=== PATIENT | male | born 1975 | race Caucasian/White ===

== ENCOUNTER → 2018-04-14 | Outpatient (CLI) | payer OTHER ==
--- NOTE | 2018-04-14 14:41 | CARD ---
MR#: [id number] Date of Study: 04/14/2018 Ordering Physician: MILIND HACKETT, Referring Physician: MILIND HACKETT, Tech: Verónica Sage RDCS APPROVED REPORT INDICATION Chest Pain Reason : Patient complained of pain PROCEDURE The patient underwent an Exercise Stress Test using the Gucci Protocol. Blood pressure, heart rate, a nd EKG were monitored. An Echocardiogram was performed by engine emission technician in four stages in quad fashion. At peak stress four se lected images were obtained and placed side by side with resting images for comparison. STRESS ECHO FINDINGS The resting Echocardiogram showed normal left ventricular systolic contractility with an estimated Ej ection Fraction of about 60 %. The Resting Echocardiogram showed normal augmentation of myocardial wall segments using a 16 segment model. The Stress Echocardiogram showed normal augmentation of myocardial wall segments using a 16 segment m jeffrey. The Stress Echocardiogram left ventricular systolic contractility has an estimated Ejection Fraction of about 65%. Test Type: Exercise Stress Nurse/Tech: Megan Palmer RN Test Indications: Chest Pain Cardiac History and Allergies: No known cardiac Medications: see EMR Medical History: see EMR Resting ECG: SR Resting Heart Rate: 70 bpm Resting Blood Pressure: 124/70mmHg Pretest Chest Pain: No chest pain Nurse/Tech Notes S1,S2 and lungs are clear to auscultation. Stress Symptoms Dyspnea,Fatigue POST EXERCISE Reason for Termination: Fatigue Target HR: No Max HR: 147 bpm 84% of Maximum Predicted HR: 176 bpm Exercise duration: 13:03 min:sec, 5 Stage Exercise capacity: 14.8METs Max Blood Pressure: 148/82mmHg Blood Pressure response to exercise: Normal blood pressure response during stress. Heart Rate response to exercise: WNL Chest Pain: No. Arrhythmia: No. ST Change: No. STRESS ECG Stress EKG shows no significant changes. Preliminary Notification Critical Value: No <Conclusion> No evidence of stress induced EKG changes. Good exercise capacity at 14.8 Mets Normal resting wall motion and EF at 55% Normal stress wall motion and EF at 65%. (images obtained at less than 85% MPHR, decreasing senstivit y of the test) Low risk study overall. Signed by : Keith Katrapati, Electronically Approved : 04/14/2018 14:40:06
== END | disposition home or self-care (01) ==
LOC: ECHO 11:48
PROVIDERS: ATTEND Internal Medicine Cardiovascular Disease
DX: R07.9 Chest pain, unspecified (principal)
CPT/HCPCS: 93017; 93350

== ENCOUNTER → 2020-03-11 | Outpatient (CLI) | payer OTHER ==
--- NOTE | 2020-03-11 14:52 | KCIC ---
EXAMINATION: LOWER EXT JOINT WO LT INDICATIONS: Left knee pain medially since injuring January. TECHNIQUE: Multiplanar multisequence MRI of the left knee was obtained without contrast. COMPARISON: None. FINDINGS: MENISCI: The medial and lateral menisci are intact. LIGAMENTS: The anterior and posterior cruciate ligaments are intact. The medial collateral ligament and lateral collateral ligament complex are intact. EXTENSOR MECHANISM: The quadriceps and patellar tendons are intact. Fat pads are normal. Retinacula are intact. BONES AND CARTILAGE: There is marrow edema in the medial tibial plateau extending into the lateral tibial plateau with suggestion of a low signal fracture line on T2 series (image 9, series 8). This could reflect a bone contusion or stress fracture.. Alignment is normal. Focal superficial and deep partial thickness cartilage loss in the lateral patellar facet with small subchondral cysts. Trochlear cartilage is intact. Medial and lateral compartment cartilage is intact. OTHER: Small joint effusion. No Vidal cyst. Muscles and tendons are normal. There is soft tissue edema along the proximal medial tibia. IMPRESSION: 1. Medial tibial plateau stress fracture. 2. No meniscal or ligamentous injury. 3. Patellofemoral cartilage loss. Electronically signed by: Linda Guillen MD (03/11/2020 2:49 PM) [id number]
== END ==
LOC: KCIC MRI 10:00
PROVIDERS: ATTEND Physician Assistant
DX: S82.142A Displaced bicondylar fracture of left tibia, initial encounter for closed fracture (principal); M25.562 Pain in left knee; X58.XXXA Exposure to other specified factors, initial encounter; Y93.89 Activity, other specified; Y92.89 Other specified places as the place of occurrence of the external cause; Y99.8 Other external cause status
CPT/HCPCS: 73721